=== PATIENT | female | born 1975 | race Caucasian/White ===

== ENCOUNTER 2017-07-27 10:56 | Emergency (ER) | payer MEDICAID, OTHER ==
[2017-07-27 11:46] LABS: BASOPHILS % (AUTO) 0.4 %; EOSINOPHILS % (AUTO) 0.6 %; LYMPHOCYTES # (AUTO) 0.8 10^3/uL (1.5-3.5); LYMPHOCYTES % (AUTO) 17.6 %; MEAN CORPUSCULAR HEMOGLOBIN 30.8 pg (27.0-31.0); MEAN CORPUSCULAR HGB CONC 34.5 g/dL (32.0-36.0); MEAN CORPUSCULAR VOLUME 89.3 fL (81.0-99.0); MEAN PLATELET VOLUME 8.4 fL (7.9-10.8); MONOCYTES # (AUTO) 0.6 10^3/uL (0.0-1.0); MONOCYTES % (AUTO) 12.9 %; NEUTROPHILS # (AUTO) 2.9 10^3/uL (1.5-6.6); NEUTROPHILS % (AUTO) 68.5 %; PLT - PLATELET COUNT 145 10^3/uL (130-450); RED BLOOD COUNT 4.23 10^6/uL (4.20-5.40); RED CELL DISTRIBUTION WIDTH 12.9 % (12.0-15.0); WHITE BLOOD COUNT 4.3 x10^3/uL (4.8-10.8)
[2017-07-27 12:06] LABS: ALBUMIN 4.2 g/dL (3.2-5.5); ALBUMIN/GLOBULIN RATIO 1.6 (1.0-2.2); BILIRUBIN,TOTAL 0.5 mg/dL (0.2-1.0); CALCIUM 8.9 mg/dL (8.5-10.3); CREATININE 0.7 mg/dL (0.4-1.0); TOTAL PROTEIN 6.9 g/dL (6.7-8.2)
[2017-07-27] MEDS ORDERED: AZITHROMYCIN 250 MG TABLET PO STA (12:07)
[2017-07-27 12:10] LABS: HCG,QUALITATIVE BLOOD NEGATIVE
--- NOTE | 2017-07-27 12:10 | ED Physician Documentation ---
PD HPI URI - Stated complaint Stated Complaint: CHEST PX - Chief complaint Chief Complaint: Cardiac - History obtained from History obtained from: Patient - History of Present Illness Timing - onset: Other (She has had a cold with postnasal drip for a few days, no fevers. Starting today she developed a productive cough with greenish to yellow sputum and while running today she started to develop central chest pain that only bothered her when she coughs. She is pain-free at rest and does not have pain with deep breathing or shortness of breath, but still has moderate pain when she coughs. It is a sharp central nonradiating pain. There is no associated pedal edema or calf pain. No recent travel.) Review of Systems Constitutional: denies: Fever, Chills Nose: reports: Rhinorrhea / runny nose, Congestion Throat: denies: Sore throat Respiratory: reports: Cough. denies: Dyspnea GI: denies: Abdominal Pain PD PAST MEDICAL HISTORY - Past Medical History Cardiovascular: None Respiratory: Pneumonia, Other Endocrine/Autoimmune: None GI: None : Kidney stones HEENT: None Psych: None Musculoskeletal: None Derm: None - Past Surgical History Past Surgical History: Yes - Present Medications Home Medications: Ambulatory Orders Medication Instructions Recorded Confirmed Fluticasone [Flonase] 1 sprays SANCHO BID 06/24/15 06/24/15 Azithromycin [Zithromax] 250 mg PO DAILY #4 tablet 07/27/17 - Allergies Allergies/Adverse Reactions: Allergies Allergy/AdvReac Type Severity Reaction Status Date / Time No Known Drug Allergies Allergy Verified 07/27/17 11:13 - Social History Does the pt smoke?: No Smoking Status: Never smoker Does the pt drink ETOH?: No Does the pt have substance abuse?: No - Immunizations Immunizations are current?: Yes - POLST Patient has POLST: No PD ED PE NORMAL - Vitals Vital signs reviewed: Yes - General General: Alert and oriented X 3, No acute distress - HEENT HEENT: PERRL, EOMI, Ears normal, Moist mucous membranes, Pharynx benign - Neck Neck: Supple, no meningeal sign, No bony TTP - Cardiac Cardiac: RRR, No murmur - Respiratory Respiratory: No respiratory distress, Other (Right basilar crackles) - Abdomen Abdomen: Non tender - Back Back: No CVA TTP, No spinal TTP - Derm Derm: Normal color, Warm and dry - Extremities Extremities: No edema, No calf tenderness / cord - Neuro Neuro: Alert and oriented X 3, Normal speech Results - Vitals Vitals: Vital Signs - 24 hr 07/27/17 11:09 Temperature 36.9 C Heart Rate 88 Respiratory 16 Rate Blood Pressure 121/56 L O2 Saturation 100 Oxygen O2 Source Room air - EKG (time done) 1106 Rate: Rate (enter#) (86) Rhythm: NSR [place]: Normal Intervals: Normal [place] QRS: Normal Ischemia: Normal ST segments Computer interpretation: Agree with computer - Labs Labs: Laboratory Tests 07/27/17 07/27/17 07/27/17 11:33 11:33 11:33 WBC 4.3 L RBC 4.23 Hgb 13.0 Hct 37.7 MCV 89.3 MCH 30.8 MCHC 34.5 RDW 12.9 Plt Count 145 MPV 8.4 Neut # 2.9 Lymph # 0.8 L [place] # 0.6 Eos # 0.0 Baso # 0.0 Absolute Nucleated RBC 0.00 Nucleated RBC % 0.0 Sodium 134 L Potassium 4.0 Chloride 104 Carbon Dioxide 23 Anion Gap 7.0 BUN 13 Creatinine 0.7 Estimated GFR (MDRD) 92 Glucose 88 Calcium 8.9 Total Bilirubin 0.5 AST 18 ALT 13 Alkaline Phosphatase 42 Troponin I < 0.04 Total Protein 6.9 Albumin 4.2 Globulin 2.7 Albumin/Globulin Ratio 1.6 Lipase 20 L Serum HCG, Qual 07/27/17 11:33 WBC RBC Hgb Hct MCV MCH MCHC RDW Plt Count MPV Neut # Lymph # [place] # Eos # Baso # Absolute Nucleated RBC Nucleated RBC % Sodium Potassium Chloride Carbon Dioxide Anion Gap BUN Creatinine Estimated GFR (MDRD) Glucose Calcium Total Bilirubin AST ALT Alkaline Phosphatase Troponin I Total Protein Albumin Globulin Albumin/Globulin Ratio Lipase Serum HCG, Qual NEGATIVE - Rads (name of study) 2v CXR Radiology: EMP read contemporaneously (RLL JULIO) PD MEDICAL DECISION MAKING - ED course ED course: 41-year-old woman with chest pain only with coughing in the setting of a URI and has pneumonia x-ray, no other worrisome findings on workup and a normal EKG. She is pain-free at rest without coughing. Departure - Departure Disposition: 01 Home, Self Care Clinical Impression: Chest pain Qualifiers: Chest pain type: unspecified Qualified Code(s): R07.9 - Chest pain, unspecified Pneumonia Qualifiers: Pneumonia type: due to unspecified organism Laterality: right Lung location: lower lobe of lung Qualified Code(s): J18.1 - Lobar pneumonia, unspecified organism Condition: Stable Record reviewed to determine appropriate education?: Yes Instructions: Pneumonia Dc Prescriptions: Azithromycin [Zithromax] 250 mg PO DAILY #4 tablet Comments: Followup with your doctor in 3-5 days. Return if worse.
--- NOTE | 2017-07-27 12:17 | XRAY Preliminary Report ---
Exam: XR CHEST 2 VIEW X-RAY IMPRESSION: Patchy posterior right lower lobe airspace disease worrisome for pneumonia. [facility] SITE ID: [id number]
--- NOTE | 2017-07-27 12:17 | XRAY Report ---
EXAM: CHEST RADIOGRAPHY EXAM DATE: 07/27/2017 11:42 AM. CLINICAL HISTORY: Chest pain with cough for one day. COMPARISON: Chest x-ray 04/30/2013. TECHNIQUE: 2 views. FINDINGS: Lungs/Pleura: Patchy posterior right lower lobe airspace disease. No pneumothorax or pleural effusion. Mediastinum: Heart and mediastinal contours are unremarkable. Other: Mild scoliosis. IMPRESSION: Patchy posterior right lower lobe airspace disease worrisome for pneumonia. [facility] Referring Provider Line: [phone] SITE ID: [id number]
[2017-07-27 12:22] VITALS: BP 110/75
== END 2017-07-27 12:40 | disposition home or self-care (01) ==
LOC: ED 10:56
DX: J18.9 Pneumonia, unspecified organism (principal); R07.9 Chest pain, unspecified
CPT/HCPCS: 36415; 71046; 80053; 83690; 84484; 84703; 85025; 93005; 99283; 99284; A9270

== ENCOUNTER 2017-08-06 15:02 | Emergency (ER) | payer MEDICAID ==
--- NOTE | 2017-08-06 16:39 | XRAY Preliminary Report ---
Exam: XR CHEST 2 VIEW X-RAY IMPRESSION: No acute cardiopulmonary disease seen. Moderate levoscoliosis in the thoracic spine. Prob able bilateral nipple shadows. [facility] SITE ID: [id number]
--- NOTE | 2017-08-06 16:39 | XRAY Report ---
EXAM: CHEST RADIOGRAPHY EXAM DATE: 08/06/2017 04:02 PM. CLINICAL HISTORY: Cough, recent pneumonia. COMPARISON: Chest 07/27/2017. TECHNIQUE: 2 views. FINDINGS: Lungs/Pleura: No consolidation or airspace disease. No pleural effusion. No pneumothorax. Normal volu mes. Probable bilateral nipple shadows. Mediastinum: Heart and mediastinal contours are unremarkable. Other: Moderate levoscoliosis in the thoracic spine. IMPRESSION: No acute cardiopulmonary disease seen. Moderate levoscoliosis in the thoracic spine. Prob able bilateral nipple shadows. [facility] Referring Provider Line: [phone] SITE ID: [id number]
[2017-08-06 17:07] VITALS: BP 140/79
--- NOTE | 2017-08-06 17:28 | ED Physician Documentation ---
History of Present Illness - Stated complaint Stated Complaint: COUGH W/PX - Chief complaint Chief Complaint: Resp - Additonal information Additional information: hx from pt had pna 07/27 took her ab seemed better still coughing cough worse last night and has right sided CP concerned about relapse no leg swelling no travel Review of Systems Constitutional: denies: Fever Cardiac: reports: Chest pain / pressure Respiratory: reports: Cough GI: denies: Abdominal Pain : reports: LMP (08/04) Musculoskeletal: denies: Extremity swelling PD PAST MEDICAL HISTORY - Past Medical History Past Medical History: Yes Cardiovascular: None Respiratory: Pneumonia, Other Endocrine/Autoimmune: None GI: None : Kidney stones HEENT: None Psych: None Musculoskeletal: None Derm: None - Past Surgical History Past Surgical History: Yes - Present Medications Home Medications: Ambulatory Orders Medication Instructions Recorded Confirmed Fluticasone [Flonase] 1 sprays SANCHO BID 06/24/15 08/06/17 Fexofenadine HCl [Lety Allergy] 60 mg PO 08/06/17 - Allergies Allergies/Adverse Reactions: Allergies Allergy/AdvReac Type Severity Reaction Status Date / Time No Known Drug Allergies Allergy Verified 07/27/17 11:13 - Social History Does the pt smoke?: No Smoking Status: Never smoker Does the pt drink ETOH?: No Does the pt have substance abuse?: No - Immunizations Immunizations are current?: Yes - POLST Patient has POLST: No PD ED PE NORMAL - Vitals Vital signs reviewed: Yes - Neck Neck: Supple, no meningeal sign - Cardiac Cardiac: RRR, Other (+ TTP just right of sternum) - Respiratory Respiratory: No respiratory distress, Clear bilaterally - Abdomen Abdomen: Soft, Non tender - Extremities Extremities: No edema, No calf tenderness / cord - Neuro Neuro: Alert and oriented X 3 Results - Vitals Vitals: Vital Signs - 24 hr 08/06/17 08/06/17 15:17 16:58 Temperature 36.6 C 36.9 C Heart Rate 81 69 Respiratory 16 18 Rate Blood Pressure 141/82 H 140/79 H O2 Saturation 100 100 Oxygen O2 Source Room air PD MEDICAL DECISION MAKING - ED course ED course: PERC neg Departure - Departure Disposition: 01 Home, Self Care Clinical Impression: Chest wall pain Condition: Good Instructions: ED Strain Chest Wall Comments: The xray shows that your previous pneumonia has cleared up Your chest seems tender to palpate and I suspect that you have strained your chest with coughing I think it is safe for you to go home and take over the counter cough medications and ibuprofen for the pain Follow up with your PMD as needed Return if worse
== END 2017-08-06 17:33 | disposition home or self-care (01) ==
LOC: ED 15:02
DX: R07.89 Other chest pain (principal)
CPT/HCPCS: 71046; 99283

== ENCOUNTER 2018-08-30 08:39 | Emergency (ER) | payer MEDICAID, OTHER ==
[2018-08-30 08:51] VITALS: BP 119/76
[2018-08-30 09:12] LABS: BILIRUBIN,URINE NEGATIVE (NEGATIVE); GLUCOSE, URINE (UA) NEGATIVE (NEGATIVE); KETONES,URINE (UA) TRACE mg/dL (NEGATIVE); LEUKOCYTE ESTERASE, URINE NEGATIVE (NEGATIVE); NITRITE,URINE NEGATIVE (NEGATIVE); OCCULT BLOOD,URINE NEGATIVE (NEGATIVE); PROTEIN,URINE TRACE mg/dL (NEGATIVE); UROBILINOGEN,URINE 0.2 (NORMAL) E.U./dL (NORMAL)
[2018-08-30 09:13] LABS: CLARITY,URINE CLEAR (CLEAR)
--- NOTE | 2018-08-30 09:34 | ED Physician Documentation ---
PD HPI ABD PAIN - Stated complaint Stated Complaint: ABD PX - Chief complaint Chief Complaint: Abd Pain - History obtained from History obtained from: Patient - History of Present Illness Timing - onset: Last night Timing - details: Still present Quality: Cramping Location: Suprapubic Associated symptoms: Vomiting (Once this morning.). No: Fever, Diarrhea, Dysuria Similar symptoms before: Has not had sx before - Additional information Additional information: The patient is a 42-year-old female who presents with lower abdominal pain that started last night and persists this morning. She describes it as a cramping, burning pain. She thinks she had a fever last night. She had one episode of vomiting this morning. She denies diarrhea or dysuria. Her last menstrual period was 1 week ago. She denies history of similar symptoms in the past. Review of Systems Constitutional: reports: Fever (last night, possible fever) Nose: denies: Congestion Throat: denies: Sore throat Cardiac: denies: Chest pain / pressure Respiratory: denies: Dyspnea, Cough GI: reports: Abdominal Pain, Vomiting (once). denies: Diarrhea : reports: LMP (one week ago.). denies: Dysuria Skin: denies: Rash Musculoskeletal: denies: Back pain Neurologic: denies: Focal weakness, Numbness, Headache PD PAST MEDICAL HISTORY - Past Medical History Cardiovascular: None Respiratory: Pneumonia, Other Endocrine/Autoimmune: None GI: None : Kidney stones HEENT: None Psych: None Musculoskeletal: None Derm: None - Past Surgical History Past Surgical History: Yes - Present Medications Home Medications: Ambulatory Orders Medication Instructions Recorded Confirmed Fluticasone [Flonase] 1 sprays SANCHO BID 06/24/15 08/06/17 Fexofenadine HCl [Lety Allergy] 60 mg PO 08/06/17 - Allergies Allergies/Adverse Reactions: Allergies Allergy/AdvReac Type Severity Reaction Status Date / Time No Known Drug Allergies Allergy Verified 08/30/18 08:51 - Social History Does the pt smoke?: No Smoking Status: Never smoker Does the pt drink ETOH?: No Does the pt have substance abuse?: No - Immunizations Immunizations are current?: Yes - POLST Patient has POLST: No PD ED PE NORMAL - Vitals Vital signs reviewed: Yes (normal) - General General: Alert and oriented X 3, Well developed/nourished - HEENT HEENT: Atraumatic, Pharynx benign - Neck Neck: No adenopathy - Cardiac Cardiac: RRR, No murmur - Respiratory Respiratory: No respiratory distress, Clear bilaterally - Abdomen Abdomen: Normal bowel sounds, Soft, No organomegaly, Other (Mild tenderness to palpation in the suprapubic region, without rebound or guarding.) - Back Back: No CVA TTP - Derm Derm: No rash - Extremities Extremities: No edema, No calf tenderness / cord - Neuro Neuro: Alert and oriented X 3, No motor deficit, Normal speech Results - Vitals Vitals: Oxygen O2 Source Room air - Labs Labs: Laboratory Tests 08/30/18 08/30/18 08/30/18 09:02 09:02 09:35 WBC 6.3 RBC 4.45 Hgb 13.8 Hct 40.7 MCV 91.4 MCH 31.1 H MCHC 34.0 RDW 13.2 Plt Count 192 MPV 8.1 Neut # (Auto) 5.4 Lymph # (Auto) 0.4 L [place] # (Auto) 0.5 Eos # (Auto) 0.0 Baso # (Auto) 0.0 Absolute Nucleated RBC 0.01 Nucleated RBC % 0.1 Urine Color YELLOW Urine Clarity CLEAR Urine pH 6.0 Ur Specific [place] 1.025 1.025 Urine Protein TRACE Urine Glucose (UA) NEGATIVE Urine Ketones TRACE Urine Occult Blood NEGATIVE Urine Nitrite NEGATIVE Urine Bilirubin NEGATIVE Urine Urobilinogen 0.2 (NORMAL) Ur Leukocyte Esterase NEGATIVE Ur Microscopic Review NOT INDICATED Urine Culture Comments NOT INDICATED Urine HCG, Qual NEGATIVE - Rads (name of study) 1-view abdomen Radiology: Prelim report reviewed, EMP read contemporaneously, See rad report (Nonobstructive bowel gas pattern. No abnormal colonic stool burden.) PD MEDICAL DECISION MAKING - ED course Complexity details: reviewed results, re-evaluated patient, considered differential, d/w patient, d/w family ED course: The underlying cause of the patient's lower abdominal pain is uncertain at this time. Ovarian cyst is a consideration. test is negative. Urinalysis is negative. CBC reveals a normal white count of 6.3. Abdominal x-ray reveals a normal bowel gas pattern. The patient's symptoms have much improved during her time in the emergency dep artment without any specific treatment. On reexamination her abdomen is benign. I do not think further clinical work-up is indicated at this time. 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 Departure - Departure Disposition: 01 Home, Self Care Clinical Impression: Abdominal pain Qualifiers: Abdominal location: lower abdomen, unspecified Qualified Code(s): R10.30 - Lower abdominal pain, unspecified Instructions: ED Abdominal Pain Unkn Cause Comments: Take Tylenol or ibuprofen if needed for discomfort. Follow-up with your primary physician next week as planned. Return to the emergency department if increasing abdominal pain, persistent vomiting, or otherwise worsening symptoms. Discharge Date/Time: 08/30/18 12:34
[2018-08-30 09:41] LABS: BASOPHILS % (AUTO) 0.4 %; EOSINOPHILS % (AUTO) 0.4 %; HGB - HEMOGLOBIN 13.8 g/dL (12.0-16.0); LYMPHOCYTES # (AUTO) 0.4 10^3/uL (1.5-3.5); LYMPHOCYTES % (AUTO) 5.8 %; MEAN CORPUSCULAR HEMOGLOBIN 31.1 pg (27.0-31.0); MEAN CORPUSCULAR VOLUME 91.4 fL (81.0-99.0); MEAN PLATELET VOLUME 8.1 fL (7.9-10.8); MONOCYTES # (AUTO) 0.5 10^3/uL (0.0-1.0); MONOCYTES % (AUTO) 7.3 %; NEUTROPHILS # (AUTO) 5.4 10^3/uL (1.5-6.6); NEUTROPHILS % (AUTO) 86.1 %; PLT - PLATELET COUNT 192 10^3/uL (130-450); RED BLOOD COUNT 4.45 10^6/uL (4.20-5.40); RED CELL DISTRIBUTION WIDTH 13.2 % (12.0-15.0); WHITE BLOOD COUNT 6.3 x10^3/uL (4.8-10.8)
[2018-08-30 09:49] LABS: HCG UR QUAL NEGATIVE
--- NOTE | 2018-08-30 11:01 | XRAY Report ---
Reason: lower abdominal pain. Procedure Date: 08/30/2018 Accession Number: [id number] / [id number] Procedure: XR - Abdomen 1 View X-Ray CPT Code: 25293 FULL RESULT: EXAM: ABDOMEN RADIOGRAPHY EXAM DATE: 08/30/2018 10:36 AM. CLINICAL HISTORY: Lower abdominal pain. Fever. COMPARISON: ABDOMEN/PELVIS W/O 10/30/2014 10:45 PM. TECHNIQUE: 1 view. FINDINGS: Bowel Gas Pattern: Within normal limits. No dilated loops. No abnormal colonic stool burden. Other: No abnormal intra-abdominal calcification or mass-effect. The visualized lung bases are clear. No acute osseous abnormality. There is mild S-shaped scoliosis of the lower thoracic and lumbar spine. IMPRESSION: Nonobstructive bowel gas pattern. No abnormal colonic stool burden. [facility]
== END 2018-08-30 12:34 | disposition home or self-care (01) ==
LOC: ED 08:39
DX: R10.30 Lower abdominal pain, unspecified (principal)
CPT/HCPCS: 36415; 74018; 81001; 81003; 81025; 85025; 87086; 99283

== ENCOUNTER 2021-08-16 07:22 | Outpatient (CLI) | payer OTHER ==
[2021-08-16 12:37] LABS: BASOPHILS % (AUTO) 0.6 %; EOSINOPHILS # (AUTO) 0.1 10^3/uL (0.0-0.7); EOSINOPHILS % (AUTO) 1.9 %; HCT - HEMATOCRIT 40.7 % (37.0-47.0); HGB - HEMOGLOBIN 13.8 g/dL (12.0-16.0); LYMPHOCYTES # (AUTO) 1.6 10^3/uL (1.5-3.5); LYMPHOCYTES % (AUTO) 31.5 %; MEAN CORPUSCULAR HEMOGLOBIN 30.9 pg (27.0-31.0); MEAN CORPUSCULAR HGB CONC 33.9 g/dL (32.0-36.0); MEAN CORPUSCULAR VOLUME 91.1 fL (81.0-99.0); MEAN PLATELET VOLUME 10.4 fL (7.9-10.8); MONOCYTES # (AUTO) 0.4 10^3/uL (0.0-1.0); MONOCYTES % (AUTO) 8.2 %; NEUTROPHILS % (AUTO) 57.6 %; PLT - PLATELET COUNT 239 10^3/uL (130-450); RED BLOOD COUNT 4.47 10^6/uL (4.20-5.40); RED CELL DISTRIBUTION WIDTH 12.6 % (12.0-15.0); WHITE BLOOD COUNT 5.2 x10^3/uL (4.8-10.8)
[2021-08-16 13:08] LABS: THYROID STIMULATING HORMONE 2.3 uIU/mL (0.34-5.60)
[2021-08-16 13:10] LABS: ALBUMIN 4.3 g/dL (3.2-5.5); ALBUMIN/GLOBULIN RATIO 1.5 (1.0-2.2); ALKALINE PHOSPHATASE 43 IU/L (42-121); ALT ALANINE AMINOTRANSFERASE 18 IU/L (10-60); AST ASPARTATE AMINOTRANSFERASE 16 IU/L (10-42); BILIRUBIN,TOTAL 0.6 mg/dL (0.2-1.0); BUN - BLOOD UREA NITROGEN 23 mg/dL (6-20); CARBON DIOXIDE - CO2 24 mmol/L (21-32); CHLORIDE 105 mmol/L (101-111); CHOL/HDL RATIO 2.6 (<4.4); CHOLESTEROL 174 mg/dL; CREATININE 0.8 mg/dL (0.4-1.0); GFR - MDRD 77 (>89); GLUCOSE 93 mg/dL (70-100); HDL CHOLESTEROL 68 mg/dL; LDL CHOLESTEROL,CALCULATED 94 mg/dL; LDL/HDL RATIO 1.4 (<4.4); POTASSIUM 4.3 mmol/L (3.5-5.0); SODIUM 136 mmol/L (135-145); TOTAL PROTEIN 7.2 g/dL (6.7-8.2); TRIGLYCERIDES 58 mg/dL; VLDL CHOLESTEROL 12 mg/dL
== END 2021-08-16 07:23 | disposition home or self-care (01) ==
LOC: LAB.N 07:22
PROVIDERS: ATTEND Nurse Practitioner Family
DX: Z00.00 Encounter for general adult medical examination without abnormal findings (principal)
CPT/HCPCS: 36415; 80053; 80061; 83721; 84443; 85025

== ENCOUNTER 2022-03-08 11:08 | Outpatient (CLI) | payer OTHER ==
--- NOTE | 2022-03-14 12:17 | Mammography Report ---
BILATERAL DIGITAL SCREENING MAMMOGRAM 3D/2D: 03/08/2022 CLINICAL: Routine screening. Comparison is made to exams dated: 02/09/2018 mammogram - [facility] and 04/22/2015 mammogram - [facility]. Both breasts are extremely dense, which lowers the sensitivity of mammography (category d />75% gland ular tissue). No significant masses, calcifications, or other findings are seen in either breast. There has been no significant interval change. IMPRESSION: NEGATIVE There is no mammographic evidence of malignancy. A 1 year screening mammogram is recommended. Based on Tyrer-Cuzick model (a risk assessment model), the patient's lifetime risk is 24.2% and her 1 0 year risk is 5.2%. If a patient has an elevated risk, a more comprehensive evaluation should be con sidered and/or a referral to a genetic counselor. The [place] [employer], [place] [employer], and NCCN Guidelines advise the consideration of Breast MRI as an adjunct to screening mammog massiel in patients whose "Lifetime risk to develop breast cancer" is 20% or higher. This exam was interpreted at Station ID: [id number]. NOTE: For mammograms, a report in lay terms will be sent to the patient. Approximately 15% of breast malignancies will not be visualized mammographically. In the management of a palpable breast mass, a negative mammogram must not discourage biopsy of a clinically suspicious lesion. Electronically Signed By: Louie culver/sariah:03/13/2022 16:23:42 ACR BI-RADS Category 1: Negative 3341F PARENCHYMAL PATTERN: (VD) - The breast(s) demonstrate(s) extremely dense parenchyma, limiting the sen sitivity of mammography. BI-RADS CATEGORY: (1) - 1 RECOMMENDATION: (ANNUAL) - Recommend routine annual screening mammography. [id number] 1 year screening LATERALITY: (B)
== END 2022-03-08 11:09 | disposition home or self-care (01) ==
LOC: DI.N 11:08
DX: Z12.31 Encounter for screening mammogram for malignant neoplasm of breast (principal)

== ENCOUNTER 2023-02-28 08:39 | Outpatient (CLI) | payer OTHER ==
[2023-02-28 12:25] LABS: ESTIMATED AVERAGE GLUCOSE 91 mg/dL (70-100); HEMOGLOBIN A1c% 4.8 % (4.27-6.07)
[2023-02-28 12:41] LABS: ALBUMIN 4.4 g/dL (3.2-5.5); ALBUMIN/GLOBULIN RATIO 1.5 (1.0-2.2); ALKALINE PHOSPHATASE 69 IU/L (42-121); ALT ALANINE AMINOTRANSFERASE 15 IU/L (10-60); AST ASPARTATE AMINOTRANSFERASE 12 IU/L (10-42); BILIRUBIN,TOTAL 0.6 mg/dL (0.2-1.0); BUN - BLOOD UREA NITROGEN 10 mg/dL (6-20); CALCIUM 9.4 mg/dL (8.5-10.3); CARBON DIOXIDE - CO2 22 mmol/L (21-32); CHLORIDE 107 mmol/L (101-111); CHOL/HDL RATIO 3.7 (<4.4); CHOLESTEROL 133 mg/dL; CREATININE 0.9 mg/dL (0.6-1.3); GFR - MDRD 67 (>89); GLUCOSE 101 mg/dL (74-104); HDL CHOLESTEROL 36 mg/dL; LDL CHOLESTEROL,CALCULATED 78 mg/dL; LDL/HDL RATIO 2.2 (<4.4); POTASSIUM 3.8 mmol/L (3.5-4.5); SODIUM 136 mmol/L (135-145); TOTAL PROTEIN 7.4 g/dL (6.4-8.9); TRIGLYCERIDES 97 mg/dL (48-352); VLDL CHOLESTEROL 19 mg/dL
[2023-02-28 12:48] LABS: THYROID STIMULATING HORMONE 3.91 uIU/mL (0.34-5.60)
== END 2023-02-28 08:40 | disposition home or self-care (01) ==
LOC: LAB.N 08:39
PROVIDERS: ATTEND Family Medicine
DX: F41.1 Generalized anxiety disorder (principal); F31.81 Bipolar II disorder
CPT/HCPCS: 36415; 80053; 80061; 83036; 83721; 84443